=== PATIENT | male | born 1960 | race Caucasian/White ===

== ENCOUNTER → 2023-06-28 11:46 | Outpatient (REF) | payer OTHER, SELFPAY | LOC: HWRAD 11:46 | PROVIDERS: ATTENDING PHYSICIAN Nurse Practitioner Adult Health | DX: R10.32 Left lower quadrant pain (principal); Z87.19 Personal history of other diseases of the digestive system | CPT/HCPCS: 74177; Q9967 ==

== ENCOUNTER → 2024-02-28 10:50 | Day surgery (SDC) | payer MEDICARE, SELFPAY | LOC: GI 10:50 | PROVIDERS: ATTENDING PHYSICIAN Surgery; FAMILY PHYSICIAN Internal Medicine | DX: Z12.11 Encounter for screening for malignant neoplasm of colon (principal); K57.30 Diverticulosis of large intestine without perforation or abscess without bleeding | CPT/HCPCS: G0121 ==

== ENCOUNTER → 2024-02-29 06:23 | Outpatient (REF) | payer MEDICARE, SELFPAY ==
[2024-02-29 09:01] LABS: Hematocrit 44.4 % (39.0-52.0); Hemoglobin 15.3 g/dL (13.0-18.0); Mean Corp Hgb Conc. 34.5 g/dL (33.0-37.0); Mean Corpuscular Hgb 34.4 pg (27.0-31.0); Mean Corpuscular Volume 99.8 fL (80.0-94.0); Mean Platelet Volume 10.4 fL (7.4-10.4); Platelet Count 210 10^3/uL (130-400); Red Blood Cell Count 4.45 10^6/uL (4.70-6.10); White Blood Cell Count 5.6 10^3/uL (4.8-10.8)
[2024-02-29 10:03] LABS: Blood Urea Nitrogen 21 mg/dl (9-20); Calcium 9.2 mg/dl (8.4-10.2); Carbon Dioxide 26 mmol/L (22-30); Chloride 105 mmol/L (98-107); Glucose 100 mg/dl (70-99); Potassium 4.5 mmol/L (3.5-5.1); Sodium 140 mmol/L (135-145); eGFR > 60.00
== END ==
LOC: SDSPAT 06:23
PROVIDERS: ATTENDING PHYSICIAN Surgery; FAMILY PHYSICIAN Internal Medicine
DX: Z01.818 Encounter for other preprocedural examination (principal)
CPT/HCPCS: 36415; 80048; 85027; 86850; 86900; 86901; 93005

== ENCOUNTER 2024-03-15 05:45 | Day surgery (SDC) | payer MEDICARE, SELFPAY ==
[2024-02-29 08:55] VITALS: BMI 27.8
[2024-03-15] VITALS (15 sets, daily range): BP systolic 10–166; BP diastolic 78–94; BMI 27.8
[2024-03-15] MEDS: TYLENOL 1000 MG PO (08:34)
[2024-03-15] MEDS: NEURONTIN 300 MG PO (08:34)
--- NOTE | 2024-03-15 08:51 | W.SUR.PREOP ---
Pre-Operative Surgical Note
-
I have examined this patient prior to the performance of the scheduled procedure.
The patient's condition is unchanged from the time of the current History and
Physical and the patient is able to undergo the scheduled procedure.
[2024-03-15] MEDS: TORADOL 10 MG IV ×2 (13:16→18:02)
--- NOTE | 2024-03-15 14:15 | W.IMMPOSTOP ---
Surgical Immed Post Op Note
-
Primary Surgeon: Aditya Lindo MD
Assisting Surgeon: None
Pre-op Diagnosis: Incisional hernia
Post-op Diagnosis: Same
Procedure Performed:
1. Open incisional hernia repair with mesh and bilateral posterior component separation
2. Lysis of adhesions (90 mins)
3. Excision of scar and omphalectomy
Anesthesia Type: General
Specimen / Cultures: None
Estimated Blood Loss: 11 cc
Complications: None
Operative Findings:
Midline scar excised, abdomen entered safely at the superior extent of his previous incision. Significant lysis of adhesions which took roughly 90 minutes. No enterotomies or serosal injuries. M3/M4 defect. Stomal aperture was fairly close to the
midline so this was incised medially. Bilateral posterior component separation performed and a 20 cm long by 15 cm wide uncoated polypropylene mesh was placed in the retrorectus space after placement of intra-abdominal Seprafilm and closure of the
posterior rectus sheath with running 0 Vicryl sutures. The anterior rectus sheath was then closed with running 0 PDS sutures. The hernia sacs over the midline and stomal defects were excised. A 15 Indonesian round Jaswinder drain was placed in the
subcutaneous space and the overlying tissue was closed using a running 2-0 Vicryl suture. The skin was then closed with running 4-0 Monocryl followed by Dermabond.
POST OP PLAN:
Imaging: None
Labs: Routine AM
Diet: N.p.o., IV fluids keep NG tube until return of bowel function, expect ileus.
Analgesia: Tylenol 650mg q6 Katie, Jenn 5mg q6 PRN, Dilaudid 0.5mg q2h PRN
Neuro/vascular checks: q4h
AC/AP: Hold Therapeutic AC, Ok for DVT PPx
Activity: Ad Leisa, Abdominal binder when mobilizing
Wound/Incisions/Drains: Routine, ROSITA to bulb suction.
Abx: None
Dispo: RNF
--- NOTE | 2024-03-15 14:59 | OR.RPT ---
Operative Report
Operative Report
Patient Name: Nicolas Rodrigez
: 1960
Date of Operation: 03/15/2024
Preoperative Diagnosis: Incisional ventral hernia
Postoperative Diagnosis: Same
Procedure(s):
1. Open incisional hernia repair with mesh and bilateral posterior component separation
2. Lysis of adhesions (90 mins)
3. Excision of scar and omphalectomy
Surgeon(s):
Dr. Lindo
Hair Weaver(s):
SIMEON Watt
Anesthesia: General
Estimated Blood Loss: 11 cc
Urine Output: 150 cc
Drains/Lines/Implants: 15 [place] round Jaswinder drain in the subcutaneous space
Specimens: None
Indication for surgery:
The patient has a symptomatic complex incisional hernia with a lower midline and left lower quadrant stoma components from a prior Peterson's surgery, now status post reversal. After review of their therapeutic options, he elected to pursue open
repair.
Operative Findings:
Midline scar excised, abdomen entered safely at the superior extent of his previous incision. Significant lysis of adhesions which took roughly 90 minutes. No enterotomies or serosal injuries. M3/M4 defect. Stomal aperture was fairly close to the
midline so this was incised medially. Bilateral posterior component separation performed and a 20 cm long by 15 cm wide uncoated polypropylene mesh was placed in the retrorectus space after placement of intra-abdominal Seprafilm and closure of the
posterior rectus sheath with running 0 Vicryl sutures. The anterior rectus sheath was then closed with running 0 PDS sutures. The hernia sacs over the midline and stomal defects were excised. A 15 [place]ian round Jaswinder drain was placed in the
subcutaneous space and the overlying tissue was closed using a running 2-0 Vicryl suture. The skin was then closed with running 4-0 Monocryl followed by Dermabond.
Details of the operation:
After successful induction of general anesthesia and placement of an endotracheal tube, the patient was clipped, prepped and draped in the supine position. A team timeout was performed confirming administration of DVT prophylaxis, IV antibiotics and
SCDs. The patient's prior midline incision was marked out and continued cephalad and caudad in the vertical direction along the midline. Using a 10 blade scalpel the skin was incised sharply and the midline scar along with what was left of his
umbilicus was excised. We elected to enter the abdomen safely at the superior extent of the incision using a 10 blade. There was significant but flimsy adhesions to the midline which were carefully excised using sharp dissection with Metzenbaum
scissors. There were multiple [place] cheeselike defects along the midline which were carefully incised. We were able to drop the fat pad overlying the bladder and get into the space of Retzius inferiorly. We then began by taking down the adhesions
along the left lower quadrant. Using Mercedes's along the edge of the fascia we began tediously lysing the adhesions off of the anterior abdominal wall. We eventually got to the neck of the stomal component of the hernia. The small bowel followed
by the omentum incarcerated within it were reduced and the continued our lysis laterally. I then switched to the contralateral side to complete her lysis on the right lower quadrant abdominal wall. Here the adhesions were much friendlier. Total
lysis took a little over 90 minutes and no enterotomies or serosal tears were made. A large wet blue towel was then placed into the abdomen to protect the underlying viscera. I then incised the posterior rectus sheath identifying the rectus muscle
on the right side and carried this plane superiorly and inferiorly and then laterally up to the neurovascular bundles. I repeated this on the patient's left side above and below the stoma aperture. Normally I would have close the stoma aperture
transversely but as it was so close to the midline I elected to just divide the bridge in the middle and plan to bring the lateral aspect of the stoma aperture to the midline. As the area of the posterior rectus sheath was fairly tight in this area
a limited transversus abdominis release was performed by incising the posterior lamella of the internal oblique just ahead of the neurovascular bundles and identifying the transversalis fascia which allowed enough release medially. I then turned my
the wound and transitioned our posterior rectus sheath incision into the preperitoneal space taking down the preperitoneal fat pad from around the umbilicus. Satisfied, term attention to the inferior portion of the dissection and connected our
posterior rectus sheath to the space of Retzius. To limit the amount of adhesions large piece of Seprafilm was placed in the abdomen after removal of the towel. The posterior rectus sheaths were then approximated using running 0 Vicryl suture that
was anchored at each apex and run to the middle. The midline came together without significant tension. We then measured our pocket which measured roughly 20 cm long by 15 cm wide. A 30 x 30 cm polypropylene macro porous mid weight mesh was then
cut to size and placed into the pocket until it lay completely flat. No anchoring sutures were placed. The rectus muscles bilaterally were injected with 60 cc total of a mixture of cord percent Marcaine with Decadron. We then closed the anterior
rectus sheaths using running 0 PDS suture anchored at each apex and run using half centimeter bites with half centimeter advancement till they met in the middle. An additional anchoring stitch was used at the lateral aspect of the fascia around the
stoma to help medialize it. We then turned our attention to the hernia sacs that remained in the midline and over the stoma all of which were removed. Hemostasis was achieved. A 15 B[place]udian round Jaswinder drain was then introduced through a stab
incision in the right lower quadrant and passed over the fascia to help drain the subcutaneous space. The skin was closed in layers with interrupted 2-0 vicryl deep dermals followed by a running subcuticular 4-0 Monocryl followed by dermabond. An
abdominal binder was placed. The patient returned to the Recovery Room in stable condition. Sponge and instrument counts were correct. No specimens sent to Pathology.
I was the attending physician and performed the procedure with assistance from the SOC ANALYST above. I was present for all portions of the case
Aditya Lindo MD
--- NOTE | 2024-03-15 16:50 | PTCARENOTE ---
Patient received from PACU in bed; Patient on 2L NC; NGT R Nare to LIS; Patient states abdominal pain is mild and tolerable, states pain in throat is moderate; Patient denies nausea/vomiting at this time; RLQ ROSITA Drain site C/D/I, sanguinous output
noted; Midline abdominal incision with primaseal C/D/I; Friend at bedside; Patient oriented to room and unit; Call grigsby within reach; Bed in lowest position, wheels locked; Assessment ongoing
[2024-03-15] MEDS: TYLENOL PO ×2 (17:04→20:21)
[2024-03-15] MEDS: NORMOSOL-R/PLASMALYTE-A 1000 IV (17:04)
[2024-03-15] MEDS: LOVENOX 40 MG SC (18:03)
[2024-03-16] MEDS: TYLENOL PO ×4 (00:21→20:00)
[2024-03-16] MEDS: TORADOL 10 MG IV ×4 (01:00→18:28)
[2024-03-16 03:10] VITALS: BP 145/93
[2024-03-16 06:30] LABS: % Basophils 0.2 % (0-2); % Immature Granulocytes 0.5 % (0-0.5); % Lymphocytes 11.1 % (20.5-51.1); % Monocytes 7.9 % (1.7-9.3); % Neutrophils 80.3 % (42.2-75.2); Absolute Immature Granulocytes 0.1 10^3/uL (0-0.05); Absolute Lymphocytes 1.1 10^3/uL (1.2-3.4); Absolute Monocytes 0.8 10^3/uL (0.1-0.6); Absolute Neutrophils 8.1 10^3/uL (1.4-6.5); Hematocrit 43.2 % (39.0-52.0); Mean Corp Hgb Conc. 34.7 g/dL (33.0-37.0); Mean Corpuscular Hgb 33.3 pg (27.0-31.0); Mean Platelet Volume 10.2 fL (7.4-10.4); Nucleated Red Blood Cells % 0 % (-); Platelet Count 230 10^3/uL (130-400); Red Cell Dist. Width 12.3 % (11.5-14.5); White Blood Cell Count 10.1 10^3/uL (4.8-10.8)
[2024-03-16 07:00] LABS: Blood Urea Nitrogen 29 mg/dl (9-20); Calcium 8.6 mg/dl (8.4-10.2); Carbon Dioxide 22 mmol/L (22-30); Chloride 105 mmol/L (98-107); Estimated Creatinine Clearance 78 ml/min; Glucose 125 mg/dl (70-99); Potassium 4.7 mmol/L (3.5-5.1); Sodium 138 mmol/L (135-145); eGFR > 60.00
[2024-03-16 07:47] VITALS: BP 165/93
[2024-03-16] MEDS: CHLORASEPTIC/SORE THROAT SPRAY 1 SPRAY PO (08:55)
[2024-03-16 11:30] VITALS: BP 153/85
--- NOTE | 2024-03-16 12:05 | W.PN.GS2 ---
Today's Communication / Plan
-
d/c NGT and start clears
Assessment / Plan
-
63 yo male presenting for management of incisional hernia now POD #1 open incisional hernia repair with mesh and bilateral posterior component separation with extensive ISABEL.
AFVSS
Low outputs from ngt: removed at bedside
+Flatus
Labs stable post op
--Trial of clears
--C/W scheduled and prn analgesics
--ABD binder with activity
--C/W ROSITA to bulb suction
--OOB/Ambulate
--d/c IVF once tolerating PO
--VTE ppx with scds and lovenox sq
--PPI for GI ppx
Subjective Data
-
Date of Service: March 16, 2024
Patient seen and examined at bedside. Notes discomfort and irritation from NGT. Passing flatus. Post op pain well managed. Denies n/v. C/O headache
Objective Data
-
Intake and Output
03/15/24 03/16/24 03/17/24
06:59 06:59 06:59
Intake Total 1350 / 1350 50 / 50
Output Total 590 / 590
Balance 760 / 760 50 / 50
Intake:
Oral fluids 0 / 0
IV fluids (Total) 1350 / 1350
normosol 600 / 600
Amount instilled into GI Tube ( 50 / 50
Total)
[place] Sump 50 / 50
Output:
Drain Output (Total)
Middle Abdomen Ney-Walter
Urine, Barrera 575 / 575
Vital Signs
Temp Pulse Resp BP Pulse Ox
98.7 F 84 16 153/85 99
03/16/24 11:30 03/16/24 11:30 03/16/24 11:30 03/16/24 11:30 03/16/24 11:30
Lab Results
03/16/24 05:17
03/16/24 05:17
Calcium 8.6 mg/dl (8.4-10.2) 03/16/24 05:17
Physical Exam
-
NAD
ABD soft, nd, minimal incisional tenderness
NGT with minimal blood tinged gastric drainage, Barrera with clear, yellow urine
Midline dressing c,d,i
ROSITA with minimal SSF
[2024-03-16] MEDS: TYLENOL 650 MG PO ×2 (12:52→16:54)
[2024-03-16] MEDS: NSS (PRESERVATIVE FREE) 10 ML IV (12:53)
[2024-03-16] MEDS: PROTONIX IV 40 MG IV (12:53)
[2024-03-16] MEDS: NORMOSOL-R/PLASMALYTE-A 1000 IV (12:59)
--- NOTE | 2024-03-16 14:13 | CM ---
Met with pt at bedside
Pt reports he lives alone in a 2 story home; 2 steps to enter, FF set-up
Independent, employed FT, driving
DME - none
SNF/HH - no past hx
Has ride at discharge
PCP - Suad Perales
Pharm - [facility]
Plan - anticipate home no needs when medically ready
[2024-03-16 15:30] VITALS: BP 143/44
[2024-03-16] MEDS: LOVENOX 40 MG SC (18:27)
[2024-03-16 23:45] VITALS: BP 148/69
[2024-03-17] MEDS: TYLENOL PO ×5 (00:53→14:42)
[2024-03-17 07:25] VITALS: BP 129/76
[2024-03-17] MEDS: PROTONIX IV 40 MG IV (08:57)
[2024-03-17] MEDS: NSS (PRESERVATIVE FREE) 10 ML IV (08:57)
[2024-03-17 09:07] LABS: Hematocrit 40.9 % (39.0-52.0); Hemoglobin 14.1 g/dL (13.0-18.0); Mean Corp Hgb Conc. 34.5 g/dL (33.0-37.0); Mean Corpuscular Hgb 34.6 pg (27.0-31.0); Mean Corpuscular Volume 100.2 fL (80.0-94.0); Mean Platelet Volume 10.1 fL (7.4-10.4); Platelet Count 191 10^3/uL (130-400); Red Blood Cell Count 4.08 10^6/uL (4.70-6.10); Red Cell Dist. Width 12.2 % (11.5-14.5); White Blood Cell Count 6.6 10^3/uL (4.8-10.8)
[2024-03-17 09:51] LABS: Blood Urea Nitrogen 25 mg/dl (9-20); Calcium 8.8 mg/dl (8.4-10.2); Carbon Dioxide 25 mmol/L (22-30); Chloride 101 mmol/L (98-107); Estimated Creatinine Clearance 86 ml/min; Glucose 163 mg/dl (70-99); Magnesium 2.2 mg/dl (1.6-2.3); Potassium 4.3 mmol/L (3.5-5.1); Sodium 138 mmol/L (135-145); eGFR > 60.00
--- NOTE | 2024-03-17 11:18 | CM ---
Reviewed the chart notes and spoke with the patient at the bedside. VN/homecare consult received. Patient will no be home bound he will be working. Patient comfortable with draining the ROSITA drain. Per patient, has had a colostomy in the past. CM
continues to be available to patient/family and is monitoring medical plan for needs at discharge.
Plan: Discharge to home when medically stable.
--- NOTE | 2024-03-17 12:35 | PTCARENOTE ---
Patient with no c/o pain. Patient refusing Tylenol and Neurontin. Patient ambulating in halls, tolerating a Low residue diet. ROSITA teaching done with patient, supplies for home provided.
--- NOTE | 2024-03-17 12:51 | W.PN.GS2 ---
Addendum entered and electronically signed by Gavin Bobo MD 03/17/24 13:22:
I saw and examined the patient.
The INTERNATIONAL TRADE MANAGER's note was reviewed and I agree with the note.
Comment:
Doing well, passing flatus, no BM yet. Voiding. Pain controlled.
AFVSS, ABD soft, minimally distended, appropriately tender, no R/G; ROSITA�65 mL sanguinous
� Okay for regular diet
� Continue pain control with Tylenol, oxycodone as needed
� Continue abdominal binder, encourage OOB/IS
� Continue ROSITA to bulb suction, likely DC with drain in place; character appeared dark sanguinous, will monitor
� Continue DVT PPx with Lovenox
Original Note:
Today's Communication / Plan
-
Advance diet
Assessment / Plan
-
63 yo male presenting for management of incisional hernia now POD #2 open incisional hernia repair with mesh and bilateral posterior component separation with extensive ISABEL.
AFVSS
Tolerating clears
+Flatus
Labs stable post op
--Advance to LRD
--C/W scheduled and prn analgesics
--ABD binder with activity
--C/W ROSITA to bulb suction, may need to leave in place upon d/c: consult placed to CM for VNA arrangements
--OOB/Ambulate
--VTE ppx with scds and lovenox sq
--PPI for GI ppx
Tentative d/c later today vs tomorrow pending diet tolerance
Subjective Data
-
Date of Service: March 17, 2024
Patient seen and examined at bedside with Dr. Bobo. AnthonyOB to chair. Dressed and eager to go home later today. Notes pain is minimal. Passing flatus but no BM as of yet. Feels a little bloated but denies belching. Voiding s/p branch removal
Objective Data
-
Intake and Output
03/16/24 03/17/24 03/18/24
06:59 06:59 06:59
Intake Total 1350 / 1350 2410 / 2410
Output Total 590 / 590 665 / 665
Balance 760 / 760 1745 / 1745
Intake:
Oral fluids 0 / 0 1760 / 1760
IV fluids (Total) 1350 / 1350 600 / 600
normosol 600 / 600
Amount instilled into GI Tube ( 50 / 50
Total)
[place] Sump 50 / 50
Output:
Drain Output (Total)
Middle Abdomen Ney-Walter
Urine, Branch 575 / 575
Urine, Voided 600 / 600
Vital Signs
Temp Pulse Resp BP Pulse Ox
98.2 F 70 14 129/76 99
03/17/24 07:25 03/17/24 07:25 03/17/24 07:25 03/17/24 07:25 03/17/24 07:25
Lab Results
03/17/24 08:13
03/17/24 08:13
Calcium 8.8 mg/dl (8.4-10.2) 03/17/24 08:13
Magnesium 2.2 mg/dl (1.6-2.3) 03/17/24 08:13
Physical Exam
-
NAD
ABD soft, nd, minimal incisional tenderness
Midline dressing c,d,i
ROSITA with dark ssf
[2024-03-17 15:20] VITALS: BP 121/76
--- NOTE | 2024-03-17 16:37 | W.DS.TRANS ---
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
-
Discharge Instructions:
Sleep Apnea Risk Intermediate
Discharge Diagnosis/Procedures Complex incisional hernia. Abdominal wall
reconstruction
Diet No restrictions
Activity No strenuous activity
Additional Activity Wear abdominal binder with activity
Driving Restrictions As prior to admission
Bathing Restrictions OK to Shower
Wound Care Empty your drain twice a day and keep track of
the amount you drain. Once your output from the
drain is less than 30ml over a 24hour period,
call your surgeon's office to have the drain
removed.
Take the dressing off your drain to shower and
then cover with a clean gauze dressing. Change
dressing daily and as needed.
Instructions: Ney-Walter Drain
How to Keep Track of Your Drainage
Stand-Alone Forms:
Changes to Home Medications: No
Discharge Medications:
DC Medications w/original date entered in [facility]
atorvastatin 20 mg tablet 20 mg PO DAILY 03/09/24
ibuprofen 400 mg tablet 400 mg PO Q6H 03/09/24
lisinopril 10 mg tablet 10 mg PO DAILY 03/09/24
multivitamin 1 tab PO DAILY 03/09/24
psyllium husk 3.4 gram/5.4 gram oral powder (Metamucil) 1 tbsp PO DAILY 03/09/24
acetaminophen 325 mg tablet 650 mg (2 x 325 mg) PO Q4HPRN PRN mild pain #1 tab 03/17/24
Home Medication Changes
Pending Results: No
== END 2024-03-17 17:48 | disposition home or self-care (01) ==
LOC: SDS 05:45
PROVIDERS: Registered Nurse; ATTENDING PHYSICIAN Surgery; FAMILY PHYSICIAN Internal Medicine
DX: K43.2 Incisional hernia without obstruction or gangrene (principal); K66.0 Peritoneal adhesions (postprocedural) (postinfection); L90.5 Scar conditions and fibrosis of skin
CPT/HCPCS: 49591; 80048; 83735; 85025; 85027; 86900; 86901; C1729; C1781